=== PATIENT | male | born 1985 | race Caucasian/White ===

== ENCOUNTER 2020-02-12 22:00 | Emergency (ER) | payer SELFPAY ==
--- NOTE | 2020-02-12 22:09 | EDM.PDOCBH ---
<Seth Stover Diana - Last Filed: 02/13/20 04:25> ED HPI GENERAL MEDICAL PROBLEM - General Chief Complaint: Behavioral/Psych Stated Complaint: EVAL Time Seen by Provider: 02/12/20 22:04 Source of Information: Reports: Patient, Police History Limitations: Reports: No Limitations - History of Present Illness INITIAL COMMENTS - FREE TEXT/NARRATIVE: Brought by police after the patient threatened suicide. Patient had been housed at [facility] (for methamphetamine use) for substance abuse. Was served with an order for protection from his family. Pt. left [facility] today and allegedly told staff there that he had tried to hang himself "my belt was too long". The pt. returned to [facility] and told staff he was suicidal. police then called & pt. brought here. The patient tells me he is had several other suicide attempts cluing putting a gun to his head but having it misfire in May. Since then he stated he did try to hang himself with an electrical cord in the cord broke. He has also attempted carbon monoxide poisoning and someone found him in the garage and turned the car off. The patient now tells me that he didn't actually attempt suicide today but he is definitely in thinking about it and would hang himself. Onset: Today Duration: Getting Worse - Related Data Allergies Allergy/AdvReac Type Severity Reaction Status Date / Time No Known Allergies Allergy Verified 02/12/20 22:26 Home Meds: Home Meds NK [No Known Home Meds] 02/12/20 [History] Past Medical History Psychiatric History: Reports: Depression, Psych Hospitalization(s) (At least one in [place]), Suicide Attempt, Suicidal Ideation, Other (See Below) (The family took out an order of protection against this patient today.) Social & Family History - Recreational Drug Use Drug Use in Last 12 Months: Yes Recreational Drug Type: Reports: Methamphetamine - Living Situation & Occupation Living situation: Reports: (But . Has 3 children) ED ROS GENERAL - Review of Systems Constitutional: Reports: No Symptoms HEENT: Reports: No Symptoms Respiratory: Reports: No Symptoms Cardiovascular: Reports: No Symptoms Endocrine: Reports: No Symptoms GI/Abdominal: Reports: No Symptoms Musculoskeletal: Reports: No Symptoms Skin: Reports: No Symptoms ED EXAM, BEHAVIORAL HEALTH - Physical Exam Exam: See Below Exam Limited By: No Limitations General Appearance: Alert, WD/WN, No Apparent Distress Eye Exam: Bilateral Eye: Normal Inspection, PERRL Ears: Normal External Exam Nose: Normal Inspection Throat/Mouth: Normal Inspection Head: Atraumatic Neck: Normal Inspection, Non-Tender, Full Range of Motion, Other (No external bruising or benson) Respiratory/Chest: No Respiratory Distress Cardiovascular: Normal Peripheral Pulses, Regular Rate, Rhythm, No Edema GI/Abdominal: Normal Bowel Sounds, Soft, Non-Tender Extremities: Normal Inspection, Normal Range of Motion, Non-Tender Neurological: Alert, Normal Cognition, Normal Reflexes, No Motor/Sensory Deficits, Oriented x 3 Psychiatric: Alert, Oriented, Depressed Mood Skin Exam: Warm, Dry, Intact EKG INTERPRETATION EKG Date: 02/12/20 Time: 22:25 Rhythm: NSR Rate (Beats/Min): 81 P-Wave: Present QRS: Normal ST-T: Normal COURSE, BEHAVIORAL HEALTH COMP - Course Re-Assessment/Re-Exam: As of 04:15 we are waiting for a urine specimen to test for urinalysis and drug screen. The patient needs to be admitted to a psychiatric facility, but has not urinated since arrival here. Departure - Departure Disposition: DC/Tfer to Psych Hosp/Unit [facility] Clinical Impression: Depressive disorder, Suicide ideation, Methamphetamine abuse - Discharge Information Referrals: PCP,None [Primary Care Provider] - Forms: ED Department Discharge <Felix Connolly - Last Filed: 02/13/20 10:40> ED ROS GENERAL - Review of Systems Review Of Systems: See Below COURSE, BEHAVIORAL HEALTH COMP - Course Vital Signs: Last Vital Signs Temp 36.2 C 02/12/20 22:30 Pulse 67 02/12/20 22:30 Resp 16 02/12/20 22:30 BP 133/82 02/12/20 22:30 Pulse Ox 100 02/12/20 22:30 Orders, Labs, Meds: Active Orders 24 hr Category Date Time Status EKG Documentation Completion [RC] ASDIRECTED Care 02/12/20 22:11 Active EKG 12 Lead [EK] Urgent Ther 02/12/20 22:10 Ordered Laboratory Tests 02/12/20 02/12/20 02/12/20 Range/Units 22:10 22:22 22:22 WBC 7.5 (4.5-11.0) K/uL RBC 5.35 (4.30-5.90) M/uL Hgb 15.8 H (12.0-15.0) g/dL Hct 47.1 (40.0-54.0) % MCV 88 (80-98) fL MCH 30 (27-31) pg MCHC 34 (32-36) % Plt Count 312 (150-400) K/uL Sodium (140-148) mmol/L Potassium (3.6-5.2) mmol/L Chloride (100-108) mmol/L Carbon Dioxide (21-32) mmol/L Anion Gap (5.0-14.0) mmol/L BUN (7-18) mg/dL Creatinine (0.8-1.3) mg/dL Est Cr Clr Drug Dosing mL/min Estimated GFR (MDRD) (>60) Glucose (74-106) mg/dL Calcium (8.5-10.1) mg/dL Total Bilirubin (0.2-1.0) mg/dL AST (15-37) U/L ALT (12-78) U/L Alkaline Phosphatase (46-116) U/L Total Protein (6.4-8.2) g/dL Albumin (3.4-5.0) g/dL Globulin (2.3-3.5) g/dL Albumin/Globulin Ratio (1.2-2.2) TSH, Ultra Sensitive (0.358-3.740) uIU/mL Urine Color (YELLOW) Urine Appearance (CLEAR) Urine pH (5.0-8.0) Ur Specific [place] (1.008-1.030) Urine Protein (NEGATIVE) mg/dL Urine Glucose (UA) (NEGATIVE) mg/dL Urine Ketones (NEGATIVE) mg/dL Urine Occult Blood (NEGATIVE) Urine Nitrite (NEGATIVE) Urine Bilirubin (NEGATIVE) Urine Urobilinogen (0.2-1.0) EU/dL Ur Leukocyte Esterase (NEGATIVE) Urine RBC (0-5) Urine WBC (0-5) Ur Epithelial Cells Amorphous Sediment Urine Bacteria Urine Mucus Urine Opiates Screen Negative (NEGATIVE) Ur Oxycodone Screen Negative (NEGATIVE) Urine Methadone Screen Negative (NEGATIVE) Ur Propoxyphene Screen Negative (NEGATIVE) Ur Barbiturates Screen Negative (NEGATIVE) Ur Tricyclics Screen Negative (NEGATIVE) Ur Phencyclidine Scrn Negative (NEGATIVE) Ur Amphetamine Screen Presumptive positive H (NEGATIVE) U Methamphetamines Scrn Presumptive positive H (NEGATIVE) Urine MDMA Screen Negative (NEGATIVE) U Benzodiazepines Scrn Presumptive positive H (NEGATIVE) U Cocaine Metab Screen Negative (NEGATIVE) U Marijuana (THC) Screen Negative (NEGATIVE) Ethyl Alcohol 13 mg/dL 02/12/20 02/12/20 02/13/20 Range/Units 22:22 22:22 06:41 WBC (4.5-11.0) K/uL RBC (4.30-5.90) M/uL Hgb (12.0-15.0) g/dL Hct (40.0-54.0) % MCV (80-98) fL MCH (27-31) pg MCHC (32-36) % Plt Count (150-400) K/uL Sodium 142 (140-148) mmol/L Potassium 4.1 (3.6-5.2) mmol/L Chloride 104 (100-108) mmol/L Carbon Dioxide 29 (21-32) mmol/L Anion Gap 8.9 (5.0-14.0) mmol/L BUN 9 (7-18) mg/dL Creatinine 1.2 (0.8-1.3) mg/dL Est Cr Clr Drug Dosing 96.10 mL/min Estimated GFR (MDRD) > 60 (>60) Glucose 97 (74-106) mg/dL Calcium 8.7 (8.5-10.1) mg/dL Total Bilirubin 0.6 (0.2-1.0) mg/dL AST 20 (15-37) U/L ALT 25 (12-78) U/L Alkaline Phosphatase 59 (46-116) U/L Total Protein 7.4 (6.4-8.2) g/dL Albumin 4.0 (3.4-5.0) g/dL Globulin 3.4 (2.3-3.5) g/dL Albumin/Globulin Ratio 1.2 (1.2-2.2) TSH, Ultra Sensitive 0.787 (0.358-3.740) uIU/mL Urine Color Yellow (YELLOW) Urine Appearance Clear (CLEAR) Urine pH 6.5 (5.0-8.0) Ur Specific [place] >= 1.030 (1.008-1.030) Urine Protein Negative (NEGATIVE) mg/dL Urine Glucose (UA) 100 H (NEGATIVE) mg/dL Urine Ketones Negative (NEGATIVE) mg/dL Urine Occult Blood Negative (NEGATIVE) Urine Nitrite Negative (NEGATIVE) Urine Bilirubin Negative (NEGATIVE) Urine Urobilinogen 1.0 (0.2-1.0) EU/dL Ur Leukocyte Esterase Negative (NEGATIVE) Urine RBC Not seen (0-5) Urine WBC Not seen (0-5) Ur Epithelial Cells Few Amorphous Sediment Not seen Urine Bacteria Not seen Urine Mucus Rare Urine Opiates Screen (NEGATIVE) Ur Oxycodone Screen (NEGATIVE) Urine Methadone Screen (NEGATIVE) Ur Propoxyphene Screen (NEGATIVE) Ur Barbiturates Screen (NEGATIVE) Ur Tricyclics Screen (NEGATIVE) Ur Phencyclidine Scrn (NEGATIVE) Ur Amphetamine Screen (NEGATIVE) U Methamphetamines Scrn (NEGATIVE) Urine MDMA Screen (NEGATIVE) U Benzodiazepines Scrn (NEGATIVE) U Cocaine Metab Screen (NEGATIVE) U Marijuana (THC) Screen (NEGATIVE) Ethyl Alcohol mg/dL Re-Assessment/Re-Exam Date: 02/13/20 (acceptance by [facility] @ [facility]) Departure - Departure Time of Disposition: 10:55 - Discharge Information *PRESCRIPTION DRUG MONITORING PROGRAM REVIEWED*: No *COPY OF PRESCRIPTION DRUG MONITORING REPORT IN PATIENT [id number]: No
[2020-02-13] MEDS ORDERED: Nicotine 21 MG/24 Hr Patch TRDERM ONE (12:16)
== END 2020-02-13 13:00 ==
LOC: JP.ED 22:00
DX: F32.9 Major depressive disorder, single episode, unspecified (principal); F15.10 Other stimulant abuse, uncomplicated
CPT/HCPCS: 36415; 80053; 80305; 80307; 81001; 84443; 85027; 93005; 99285; A9270; 93010